=== PATIENT | male | born 1990 | race Caucasian/White ===

== ENCOUNTER 2016-05-16 18:59 | Emergency (ER) | payer MEDICAID, OTHER ==
[2016-05-16 19:09] VITALS: TEMP 98.1
[2016-05-16] MEDS ORDERED: NS 1,000 ML IV ONE (19:39)
--- NOTE | 2016-05-16 19:56 | EDPHY ---
H & P Stated Complaint: Right Leg swelling, redness x4 days Source: Patient, Family Exam Limitations: No limitations - Personal History Current Tetanus/Diphtheria Vaccine: No Current Tetanus Diphtheria and Acellular Pertussis (TDAP): No - Medical/Surgical History Hx Asthma: No Hx Chronic Respiratory Disease: No Hx Diabetes: No Hx Cardiac Disease: No Hx Renal Disease: No Hx Cirrhosis: No Hx Alcoholism: No Hx HIV/AIDS: No Hx Splenectomy or Spleen Trauma: No Other PMH: denies - Social History Smoking Status: Light smoker HPI/ROS: CHIEF COMPLAINT: lower extremity redness, cellulitis HISTORY OF PRESENT ILLNESS: 3 days history of increasing redness of both lower extremities, right greater than left. This is gradual onset constant duration. Mild 1st now severe. Significant edema in the right leg with minimal edema on the left. Moderately painful to palpation and ambulation. Improved at rest with elevation. No fever or chills. No nausea or vomiting. Took 1 residual clindamycin pills from previous infection yesterday. this was only 150 mg. He also took 2 of his 500 mg Keflex pills left over from previous infection. He reports that 2 of these previous episodes resolved without intervention, and 1 of them needed IV antibiotics which he refused and was treated outpatient for this. He has no other associated complaints or modifying factors. No previous venous thrombolic event. REVIEW OF SYSTEMS: Ten systems reviewed and are negative unless otherwise noted in the HPI EXAMINATION General Appearance: Alert, no distress , unkempt Head: normocephalic, atraumatic Eyes: Pupils equal and round, no conjunctival pallor or injection ENT, Mouth: Mucous membranes moist Neck: Normal inspection, supple, non-tender Respiratory: Lungs are clear to auscultation Cardiovascular: Regular rate and rhythm Gastrointestinal: Abdomen is soft and nontender Back: non-tender, no bony abnormalities Neurological: A&O, nonfocal, normal gait Skin: Warm and dry, no rash Extremities: Nontender, no pedal edema Psychiatric: Mood and affect normal DIFFERENTIAL DIAGNOSES: Including but not limited to Cellulitis, DVT, sepsis, erysipelas, erythema nodosum MDM: 7:40 p.m. bilateral lower extremity cellulitis with impressive edema and erythema. This is worse on the right than the left. I have ordered an ultrasound to rule out DVT although he has no history of such. This is the 3rd incidence of likely cellulitis for the patient. He has been admitted only once before in the past. He has informed me that he refuses admission regardless of any information that I provided him after our workup. I did discuss the risks, benefits and alternatives, informed that he will not be admitted to the hospital today regardless of our recommendation. However have ordered blood cultures, lactic acid and ultrasounds of lower extremities to rule out DVT. 7:50 p.m. notified by tech that the patient is refusing labs. I sat down with him and discussed in detail for 10 minutes. We made him aware of the risks, benefits and alternatives of laboratory studies versus no laboratory studies, IV therapy versus p.o. therapy, and the likelihood that he will fail p.o. therapy and potentially decompensated home. This risk include a compromise of the vasculature of the leg and even loss of life and limb. He voiced that he is willing to assume this risk. This was done with his father stating at bedside. I reiterated several times, the patient still refuses. He does not want any labs or ultrasounds done. He just wants to be discharged home with clindamycin. He is refusing Bactrim as well and wants only to take clindamycin. I discussed this with him at respect his wishes but strongly disagree with his choice of therapy. He will be [facility]. I strongly recommend he return to the emergency department should he change his mind to complete this workup. SUPERVISION: Patient was evaluated in conjunction with the supervising physician. Please see their note for details. (Jose Griggs) Constitutional: Initial Vital Signs Temperature (C) 36.7 C 05/16/16 19:06 Heart Rate 110 H 05/16/16 19:06 Respiratory Rate 18 05/16/16 19:06 Blood Pressure 118/69 05/16/16 19:06 O2 Sat (%) 98 05/16/16 19:06 O2 Delivery Mode Room Air Allergies/Adverse Reactions: No Known Allergies Allergy (Unverified 12/09/14 14:51) Home Medications: Medication Instructions Recorded Clindamycin 300 mg PO Q8 #60 cap 05/16/16 Medical Decision Making Other Provider: Did evaluate this patient. He has bilateral cellulitis. He has poor hygiene in several poorly healing wounds to his lower extremities periods he does sleep outside and walks through wishes and brush. This may be the etiology of his recurrent cellulitis. He adamantly refuses IV, lab work or admission. Will start him on oral antibiotics have encouraged early follow-up (David Greenfield) - Data Points Medications Given: Discontinued Medications Clindamycin (Cleocin 150 Mg Prepack#6) 1 btl TAKEHOME EDNOW ONE PRN Reason: Protocol Stop: 05/16/16 19:59 Last Admin: 05/16/16 20:02 Dose: 1 btl Sodium Chloride (Ns) 1,000 mls @ 0 mls/hr IV ONCE ONE PRN Reason: Wide Open Stop: 05/16/16 19:40 Last Admin: 05/16/16 19:53 Dose: Not Given Departure - Departure Disposition: Home, Routine, Self-Care Clinical Impression: Bilateral lower leg cellulitis Condition: Fair Instructions: Clindamycin (By mouth), Cellulitis (ED) Referrals: NONE *PRIMARY CARE P,. [Primary Care Provider] - As per Instructions Hannah Adams MD [Medical Doctor] - As per Instructions Milton Le MD [Medical Doctor] - As per Instructions Prescriptions: Clindamycin 300 mg PO Q8 #60 cap
[2016-05-16] MEDS ORDERED: CLINDAMYCIN 150MG PREPACK#6 BTL TAKEHOME ONE (19:58)
[2016-05-16 20:08] VITALS: BP 120/88; PULSE 104; RESP 14; O2SAT 96
== END 2016-05-16 20:08 | disposition home or self-care (01) ==
DX: L03.115 Cellulitis of right lower limb (principal); L03.116 Cellulitis of left lower limb; F17.200 Nicotine dependence, unspecified, uncomplicated

== ENCOUNTER 2018-02-06 14:57 | Emergency (ER) | payer MEDICAID ==
--- NOTE | 2018-02-06 15:18 | EDPHY ---
H & P Stated Complaint: possible spider bite to L pointer finger x 4 days Time Seen by Provider: 02/06/18 15:04 HPI/ROS: CHIEF COMPLAINT: Pain and swelling left index finger HISTORY OF PRESENT ILLNESS: 27-year-old male presents with pain and swelling of the left index finger. He thinks that he was bitten by a spider 4 days ago. Gradually increasing pain and swelling since the bite. The pain is moderate, no change with movement and no drainage. No fever. Allergic to tetanus vaccine. REVIEW OF SYSTEMS: complete 10 point ROS reviewed and is negative except for the noted elements in the HPI - Personal History Current Tetanus/Diphtheria Vaccine: No Current Tetanus Diphtheria and Acellular Pertussis (TDAP): No - Medical/Surgical History Hx Asthma: No Hx Chronic Respiratory Disease: No Hx Diabetes: No Hx Cardiac Disease: No Hx Renal Disease: No Hx Cirrhosis: No Hx Alcoholism: No Hx HIV/AIDS: No Hx Splenectomy or Spleen Trauma: No Other PMH: denies - Social History Smoking Status: Light smoker Alcohol Use: Occasionally Drug Use: None, Other (recently quit heroin) - Physical Exam Exam: Alert and oriented, pleasant Extremities: Right 2nd finger-5 mm area redness, swelling and tenderness over the radial aspect of the proximal phalanx, 2 pinpoint areas of purulence present within the erythematous area. Skin: Intact Neuro: Motor and sensory intact Vascular: Capillary refill brisk distally Constitutional: Initial Vital Signs Temperature (C) 36.5 C 02/06/18 15:00 Heart Rate 76 02/06/18 15:00 Respiratory Rate 16 02/06/18 15:00 Blood Pressure 126/74 H 02/06/18 15:00 O2 Sat (%) 97 02/06/18 15:00 O2 Delivery Mode Room Air Allergies/Adverse Reactions: No Known Allergies Allergy (Verified 02/06/18 14:59) Home Medications: Medication Instructions Recorded Cephalexin [Keflex (*)] 500 mg PO TID #30 cap 02/06/18 Medical Decision Making ED Course/Re-evaluation: The abscess was cleansed and prepped by me. 1% lidocaine locally. An 11 blade scalpel was used to incise the area of fluctuance. Small amount of purulent drainage. The wound was not packed because of the very small size of the abscess. Wound culture sent. Keflex prescribed. Differential Diagnosis: includes though not limited to cellulitis, flexor tenosynovitis, osteomyelitis - Data Points Medications Given: Discontinued Medications Cephalexin HCl (Keflex) 500 mg PO EDNOW ONE PRN Reason: Protocol Stop: 02/06/18 15:38 Last Admin: 02/06/18 15:40 Dose: 500 mg Ibuprofen (Motrin) 600 mg PO EDNOW ONE Stop: 02/06/18 15:34 Last Admin: 02/06/18 15:35 Dose: 600 mg Departure - Departure Disposition: Home, Routine, Self-Care Clinical Impression: Abscess Condition: Good Instructions: Abscess (ED) Additional Instructions: Return for worsening symptoms or any concerns. Referrals: Giuseppe Orellana MD [Medical Doctor] - As per Instructions Prescriptions: Cephalexin [Keflex (*)] 500 mg PO TID #30 cap
[2018-02-06] MEDS ORDERED: IBUPROFEN 600 MG TAB PO ONE ×2 (15:33→15:34)
[2018-02-06] MEDS ORDERED: CEPHALEXIN 500 MG CAP PO ONE (15:37)
[2018-02-06 15:45] VITALS: BP 129/83
== END 2018-02-06 15:45 | disposition home or self-care (01) ==
PROC: 0H9GXZZ Drainage of Left Hand Skin, External Approach (ICD-10-PCS; principal; 2018-02-06)
DX: L02.512 Cutaneous abscess of left hand (principal)